=== PATIENT | female | born 1955 | race African-American/Black ===

== ENCOUNTER → 2016-09-18 | Outpatient (CLI) | payer MEDICARE, OTHER ==
[~2016-09-18] MED LIST: DICYCLOMINE HCL20 MG PO; LEXAPRO PO; PREMARIN PO; PRILOSEC PO; SYNTHROID PO
--- NOTE | ~2016-09-18 | CR63 ---
[facility] A Service of [facility] & [facility] RADIOLOGY TEXT RESULTS PATIENT: WILLIAM DAVIS LOCATION: [facility] : [id number] UNIT #: [id number] AGE: [address]: ALMA RYAN APRN SEX: F ORDER DR: [id number] [facility] [address] [place], [place] [address] [id number] O MR#: [id number] Acc #: [id number] NAME: WILLIAM DAVIS : 1955 SEX: F STUDY DATE/TIME: 09/18/2016 15:07 UNIT: [facility] ROOM: STUDY DESCRIPTION: CR Chest 2 View Attending Physician: Alma Ryan Np Referring Physician: Alma Ryan Np Ordering Physician: Alma Ryan Np Primary Care Physician: Sherly Schwartz M.D. MEDICAL IMAGING REPORT This report is preliminary unless electronic signature is present EXAM Chest PA and lateral dated 09/18/2016 COMPARISON 02/07/2012 HISTORY Cough, wheezing, pain, shortness of breath for 5 days. PA and lateral views of the chest are obtained and compared to the patient's prior film of 02/07/2012. FINDINGS Heart size is enlarged. Vascular markings appear increased slightly. No pleural fluid is seen. No focal infiltrates are present. CONCLUSION Cardiomegaly, increased from the last study with a slight increase in the vascular markings. Findings are suggestive of early heart failure. No evidence of significant pleural fluid or pulmonary edema. Dictated by... Akash Choi M.D. THIS IS AN ELECTRONICALLY VERIFIED REPORT Akash Choi M.D. at 09/19/2016 7:10 AM STEVEN/roderick TD: 09/18/2016 18:19 JOB #: [id number] MEDICAL IMAGING REPORT Page 1 of 1 COPY
== END | disposition home or self-care (01) ==
LOC: CRAD 14:32
DX: J06.9 Acute upper respiratory infection, unspecified (principal); R05 Cough; I51.7 Cardiomegaly
CPT/HCPCS: 71020

== ENCOUNTER → 2016-10-12 | Outpatient (CLI) | payer MEDICARE, OTHER | END | disposition home or self-care (01) | LOC: CECH 13:36 | DX: R06.09 Other forms of dyspnea (principal); I51.7 Cardiomegaly; I50.30 Unspecified diastolic (congestive) heart failure; I36.1 Nonrheumatic tricuspid (valve) insufficiency | CPT/HCPCS: 93306 ==